=== PATIENT | female | born 1970 | race Caucasian/White ===

== ENCOUNTER → 2023-12-29 | Outpatient (REF) | payer BC ==
[2023-12-29 12:43] LABS: APPEARANCE, URINE CLEAR (CLEAR); BACTERIA, URINE AUTO NEGATIVE (NEGATIVE); BILIRUBIN, URINE AUTO NEGATIVE (NEGATIVE); BLOOD, URINE BLOOD NEGATIVE (NEGATIVE); COLOR, URINE YELLOW (YELLOW); GLUCOSE, URINE (UA) AUTO NEGATIVE (NEGATIVE); KETONE, URINE AUTO NEGATIVE (NEGATIVE); LEUKOCYTE ESTERASE, URINE AUTO NEGATIVE (NEGATIVE); MUCUS, URINE SMALL (NEGATIVE); NITRITE, URINE AUTO NEGATIVE (NEGATIVE); PROTEIN, URINE AUTO NEGATIVE (NEGATIVE); RBC, URINE AUTO 0 /HPF (0-3); SPECIFIC GRAVITY URINE AUTO 1.009 (1.002-1.035); SQUAMOUS EPITHELIAL CELL UR AU 0 /HPF (0-6); UROBILINOGEN, URINE AUTO 0.2 mg/dL (0.0-2.0); WBC, URINE AUTO 1 /HPF (0-3)
[2023-12-29 13:03] LABS: BASO # 0.1 10^3/uL (0.0-0.2); BASO % 1.1 % (0.0-1.0); EOS # 0.2 10^3/uL (0.0-0.5); EOS % 1.6 % (0.0-3.0); ERYTHROCYTE SEDIMENTATION RATE 15 mm/hr (0-30); HEMATOCRIT 46.4 % (36.0-47.0); HEMOGLOBIN 15.1 g/dl (12.0-15.5); LYMPH # 2.5 10^3/uL (1.5-5.0); LYMPH % 27.2 % (24.0-44.0); MEAN CORPUSCULAR HEMOGLOBIN 31.5 pg (27.0-33.0); MEAN CORPUSCULAR HGB CONC 32.5 g/dl (32.0-36.5); MEAN CORPUSCULAR VOLUME 96.7 fl (80.0-96.0); MONO # 0.7 10^3/uL (0.0-0.8); MONO % 7.8 % (2.0-8.0); NEUTROPHILS # 5.6 10^3/uL (1.5-8.5); NEUTROPHILS % 61.3 % (36.0-66.0); PLATELET COUNT, AUTOMATED 319 10^3/uL (150-450); WHITE BLOOD COUNT 9.2 10^3/uL (4.0-10.0)
[2023-12-29 13:10] LABS: CREATININE,RANDOM URINE 35.2 MG/DL
[2023-12-29 13:19] LABS: TOTAL PROTEIN,RANDOM URINE < 6.0 MG/DL (0.0-14.0)
== END ==
LOC: M SFHCRHEU 09:28
PROVIDERS: ATTEND Internal Medicine Rheumatology
DX: M25.50 Pain in unspecified joint (principal); R21 Rash and other nonspecific skin eruption; R76.8 Other specified abnormal immunological findings in serum; L56.8 Other specified acute skin changes due to ultraviolet radiation; M15.0 Primary generalized (osteo)arthritis

== ENCOUNTER → 2023-12-29 | Outpatient (CLI) | payer BC | LOC: M WUC 10:05 | PROVIDERS: ATTEND Internal Medicine Rheumatology | DX: M25.50 Pain in unspecified joint (principal); R21 Rash and other nonspecific skin eruption; R76.8 Other specified abnormal immunological findings in serum; L56.8 Other specified acute skin changes due to ultraviolet radiation; M15.0 Primary generalized (osteo)arthritis ==

== ENCOUNTER → 2024-05-25 | Outpatient (REF) | payer BC | LOC: M SFHCRHEU 16:09 | PROVIDERS: ATTEND Internal Medicine Rheumatology | DX: M25.50 Pain in unspecified joint (principal) ==